=== PATIENT | female | born 2000 | race Caucasian/White ===

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

== ENCOUNTER → 2022-12-18 | Outpatient (CLI) | payer SELFPAY ==
[2022-12-18 15:26] LABS: Absolute Lymphocyte Count 1.56 X10^3/uL (0.83-4.51); Absolute Neutrophil Count 5.5 X10^3/uL (2.0-7.7); Basophil# 0.02 X10^3/uL; Basophil% 0.3 % (0-1); Eosinophil# 0.17 X10^3/uL; Eosinophils% 2.2 % (0-5); Hematocrit 36.6 % (37-47); Hemoglobin 12.5 g/dL (12.0-15.0); Lymphocyte # 1.56 X10^3/ul (0.83-4.51); Lymphocyte % 20.1 % (19-41); Mean Corp Hgb Conc 34.2 g/dL (32-36); Mean Corpuscular Volume 93.6 fL (81-99); Mean Platelet Vol. 9.8 fl (6.2-12.0); Monocyte# 0.54 X10^3/uL; NRBC Flagged by Analyzer 0 % (0-5); Neutrophil # 5.45 X10^3/uL (2.7-7.7); Neutrophil % 70.1 % (47-70); Platelet Count 280 K/mm3 (150-450); RBC Distribution Width CV 13.9 % (11.6-14.6); RBC Distribution Width SD 47.5 fl (35.1-43.9); Red Blood Count 3.91 M/mm3 (4.2-5.4); White Blood Count 7.8 K/mm3 (4.4-11.0)
[2022-12-18 16:39] LABS: HIV - WCH Non-Reactive (Nonreactive); Hepatitis B Surface Antigen Non-Reactive (Nonreactive); Hepatitis C Antibody Non-Reactive (Nonreactive); Rubella IgG Reactive (Nonreactive); Syphilis Antibodies Non-reactive
[2022-12-20 06:09] LABS: V-Zoster IgG (Immunity) 1038 index (Immune >165)
[2022-12-27 21:21] LABS: HPV Reflexed? NOT INDICATED
== END | disposition home or self-care (01) ==
LOC: WOBLAB 14:25
PROVIDERS: PCP Family Medicine; Visit Provider Student in an Organized Health Care Education/Training Program
DX: Z34.81 Encounter for supervision of other normal pregnancy, first trimester (principal)
CPT/HCPCS: 36415; 85025; 86703; 86762; 86780; 86787; 86803; 87086; 87088; 87340; 88175; G0145

== ENCOUNTER → 2023-03-26 | Outpatient (CLI) | payer OTHER, SELFPAY ==
[2023-03-26 11:02] LABS: Absolute Lymphocyte Count 1.52 X10^3/uL (0.83-4.51); Absolute Neutrophil Count 8.5 X10^3/uL (2.0-7.7); Basophil# 0.03 X10^3/uL; Basophil% 0.3 % (0-1); Eosinophil# 0.15 X10^3/uL; Eosinophils% 1.3 % (0-5); Hematocrit 36.4 % (37-47); Hemoglobin 11.9 g/dL (12.0-15.0); Lymphocyte # 1.52 X10^3/ul (0.83-4.51); Lymphocyte % 13.7 % (19-41); Mean Corp Hgb Conc 32.7 g/dL (32-36); Mean Corpuscular Hgb 32.2 pg (27.0-32.0); Mean Corpuscular Volume 98.6 fL (81-99); Mean Platelet Vol. 9.6 fl (6.2-12.0); Monocyte# 0.83 X10^3/uL; Monocyte% 7.5 % (0-10); NRBC Flagged by Analyzer 0 % (0-5); Neutrophil % 76.4 % (47-70); Platelet Count 264 K/mm3 (150-450); RBC Distribution Width CV 14.4 % (11.6-14.6); RBC Distribution Width SD 51.6 fl (35.1-43.9); Red Blood Count 3.69 M/mm3 (4.2-5.4); White Blood Count 11.1 K/mm3 (4.4-11.0)
[2023-03-26 11:09] LABS: Glucose Challenge Gest 1H 50g 91 mg/dL (70-140)
[2023-03-26 11:33] LABS: Syphilis Antibodies Non-reactive
== END | disposition home or self-care (01) ==
LOC: WOBLAB 09:13
PROVIDERS: PCP Family Medicine; Visit Provider Student in an Organized Health Care Education/Training Program
DX: Z34.82 Encounter for supervision of other normal pregnancy, second trimester (principal)
CPT/HCPCS: 36415; 82950; 85025; 86780

== ENCOUNTER 2023-06-18 14:55 | Outpatient (CLI) | payer OTHER, SELFPAY ==
[2023-06-18 15:17] VITALS: BP 120/66; TEMP 36.4; O2SAT 97
[2023-06-18 15:18] VITALS: PULSE 110; O2SAT 95
--- NOTE | 2023-06-18 16:39 | OB.TRI.PN ---
Progress Notes Progress Note: at 37w3d with SHY: 07/06/23 for cramping and possible labor. No vaginal bleeding or leakage of fluid. NST: 125, accels, no decels, no contractions, Reactive NST Cervix closed Assessment & Plan (1) History of section: (2) False labor: PLAN: Plan 1) No signs of labor 2) D/C home
== END 2023-06-18 16:10 | disposition home or self-care (01) ==
LOC: WPOUT 14:59 → WP 15:00
PROVIDERS: PCP Family Medicine; Visit Provider Advanced Practice Midwife
DX: O47.1 False labor at or after 37 completed weeks of gestation (principal); Z3A.37 37 weeks gestation of pregnancy
CPT/HCPCS: 59025; 59050; 99221; G0378

== ENCOUNTER 2023-06-30 22:30 | Inpatient (IN) | payer SELFPAY, OTHER ==
[2023-06-30 22:30] VITALS: BP 136/83; PULSE 105
[2023-06-30 22:31] VITALS: PULSE 103; O2SAT 97
[2023-06-30 22:39] VITALS: BMI 29.5
[2023-06-30] MEDS: LACTATED RINGERS 500 ML 999 ML IV (23:00)
[2023-06-30] MEDS: Penicillin G Pot 5,000,000 UNITS in 0.9% Normal Saline (100mL MB+) 100 ML 150 UNITS IV (23:32)
[2023-06-30] MEDS: Lactated Ringers 1,000 ML 200 ML IV (23:33)
[2023-06-30 23:47] LABS: Absolute Lymphocyte Count 2.13 X10^3/uL (0.83-4.51); Absolute Neutrophil Count 12.9 X10^3/uL (2.0-7.7); Basophil# 0.06 X10^3/uL; Basophil% 0.4 % (0-1); Eosinophils% 1.2 % (0-5); Hematocrit 37.7 % (37-47); Hemoglobin 12.3 g/dL (12.0-15.0); Lymphocyte # 2.13 X10^3/ul (0.83-4.51); Lymphocyte % 12.7 % (19-41); Mean Corp Hgb Conc 32.6 g/dL (32-36); Mean Platelet Vol. 10.6 fl (6.2-12.0); Monocyte# 1.39 X10^3/uL; Monocyte% 8.3 % (0-10); NRBC Flagged by Analyzer 0 % (0-5); Neutrophil # 12.88 X10^3/uL (2.7-7.7); Neutrophil % 76.7 % (47-70); Platelet Count 269 K/mm3 (150-450); RBC Distribution Width CV 13.8 % (11.6-14.6); RBC Distribution Width SD 47.8 fl (35.1-43.9); Red Blood Count 3.97 M/mm3 (4.2-5.4); White Blood Count 16.8 K/mm3 (4.4-11.0)
[2023-07-01] VITALS (64 sets, daily range): BP systolic 107–140; BP diastolic 55–85; PULSE 83–187; RESP 16; TEMP 36.1–37.4; O2SAT 88–100
[2023-07-01] MEDS: fentaNYL-bupivacaine (epidural) 100 ML BAG EPIDURAL ×3 (00:37→09:54)
[2023-07-01 00:41] LABS: Syphilis Antibodies Non-reactive
[2023-07-01] MEDS: LACTATED RINGERS 500 ML 999 ML IV ×2 (01:02→05:37)
--- NOTE | 2023-07-01 02:09 | PCM.HP.OB ---
HPI - General General Date of Admission: 06/30/23 Date of Service: 07/01/23 Chief Complaint: labor HPI Narrative MAKSIM SHANE, is a 22-year-old female 2 para 1 who presents at 39-2/7 weeks gestation complaining contractions and spontaneous rupture membranes. She denies any gross vaginal bleeding. She has a history of 1 previous section for breech and she would like to attempt a trial of labor after . Past medical history significant for history of depression. Maternal Data Information Final SHY: 07/06/23 Gestational age: 39 2/7 [facility] Medical History (Updated 07/01/23 @ 02:[address] Nathalia López MD) Depression Diarrhea Eating disorder Home Medications docosahexaenoic acid 200 mg capsule ( DHA) mg PO 06/30/23 [History Last Taken 06/29/23] sertraline 50 mg tablet 50 mg depression 06/30/23 [History Last Taken 06/29/23] Allergy/AdvReac Type Severity Reaction Status Date / Time No Known Allergies Allergy Verified 06/30/23 22:39 Surgical History (Updated 06/30/23 @ 23:17 by Lucia Serna) History of appendectomy History of surgery Social History (Updated 08/22/19 @ 13:59 by Darrel Vyas CARPET INSTALLATION SPECIALIST, CARPET INSTALLATION SPECIALIST-C) Smoking Status: Never smoker alcohol intake: never History Elective abortions Hx Para 1 Spontaneous abortions Hx # Term Pregnancies Ectopic pregnancies Hx # Pregnancies Multiple births # of living children ROS Constitutional Constitutional: Denies fatigue, fever(s) or malaise Eyes Eyes: Denies change in vision ENT HEENT: Denies dizziness or headache(s) Cardiovascular Cardiovascular: Denies chest pain, dyspnea or lightheadedness Respiratory/Chest Respiratory/Chest: Denies cough or dyspnea Gastrointestinal Gastrointestinal: Denies change in bowel habits Genitourinary Genitourinary: Denies burning urination or genital lesions Integumentary Integumentary: Denies rash Neurologic Neurologic: Denies confusion, dizziness, headache(s), numbness or weakness Vital Signs Vital Signs Vital Signs: 06/30/23 22:30 06/30/23 22:30 06/30/23 22:31 Temperature Temperature Source Pulse Rate 105 H 103 H Blood Pressure 136/83 H BP Systolic 136 BP Diastolic 83 Pulse Ox 06/30/23 22:31 07/01/23 00:00 07/01/23 00:01 Temperature Temperature Source Temporal Pulse Rate 117 H Blood Pressure BP Systolic BP Diastolic Pulse Ox 97 07/01/23 00:01 07/01/23 00:00 07/01/23 00:07 Temperature 98.3 F Temperature Source Pulse Rate 115 H Blood Pressure BP Systolic BP Diastolic Pulse Ox 98 07/01/23 00:07 07/01/23 00:10 07/01/23 00:10 Temperature Temperature Source Pulse Rate 115 H Blood Pressure 117/85 H BP Systolic 117 BP Diastolic 85 Pulse Ox 98 07/01/23 00:12 07/01/23 00:12 07/01/23 00:14 Temperature Temperature Source Pulse Rate 115 H Blood Pressure 127/76 H BP Systolic 127 BP Diastolic 76 Pulse Ox 98 07/01/23 00:14 07/01/23 00:18 07/01/23 00:18 Temperature Temperature Source Pulse Rate 110 H 112 H Blood Pressure BP Systolic BP Diastolic Pulse Ox 98 07/01/23 00:20 07/01/23 00:20 07/01/23 00:22 Temperature Temperature Source Pulse Rate 110 H 116 H Blood Pressure 129/73 H BP Systolic 129 BP Diastolic 73 Pulse Ox 07/01/23 00:22 07/01/23 00:23 07/01/23 00:23 Temperature Temperature Source Pulse Rate 118 H Blood Pressure BP Systolic BP Diastolic Pulse Ox 94 88 07/01/23 00:24 07/01/23 00:24 07/01/23 00:28 Temperature Temperature Source Pulse Rate 118 H 115 H Blood Pressure 137/81 H BP Systolic 137 BP Diastolic 81 Pulse Ox 07/01/23 00:28 07/01/23 00:29 07/01/23 00:29 Temperature Temperature Source Pulse Rate 113 H Blood Pressure 131/77 H BP Systolic 131 BP Diastolic 77 Pulse Ox 98 07/01/23 00:33 07/01/23 00:33 07/01/23 00:35 Temperature Temperature Source Pulse Rate 116 H Blood Pressure 117/67 BP Systolic 117 BP Diastolic 67 Pulse Ox 98 07/01/23 00:35 07/01/23 00:38 07/01/23 00:38 Temperature Temperature Source Pulse Rate 108 H 107 H Blood Pressure BP Systolic BP Diastolic Pulse Ox 98 07/01/23 00:39 07/01/23 00:39 07/01/23 00:39 Temperature Temperature Source Pulse Rate 112 H Blood Pressure 117/63 BP Systolic 117 BP Diastolic 63 Pulse Ox 94 07/01/23 00:43 07/01/23 00:43 07/01/23 00:45 Temperature Temperature Source Pulse Rate 101 H Blood Pressure 122/74 H BP Systolic 122 BP Diastolic 74 Pulse Ox 98 07/01/23 00:45 07/01/23 00:48 07/01/23 00:48 Temperature Temperature Source Pulse Rate 93 99 Blood Pressure BP Systolic BP Diastolic Pulse Ox 99 07/01/23 00:50 07/01/23 00:50 07/01/23 00:53 Temperature Temperature Source Pulse Rate 102 H 97 Blood Pressure 112/71 BP Systolic 112 BP Diastolic 71 Pulse Ox 07/01/23 00:53 07/01/23 00:54 07/01/23 00:54 Temperature Temperature Source Pulse Rate 107 H Blood Pressure 111/71 BP Systolic 111 BP Diastolic 71 Pulse Ox 99 07/01/23 00:58 07/01/23 00:58 07/01/23 00:59 Temperature Temperature Source Pulse Rate 105 H Blood Pressure 111/68 BP Systolic 111 BP Diastolic 68 Pulse Ox 98 07/01/23 00:59 07/01/23 01:03 07/01/23 01:03 Temperature Temperature Source Pulse Rate 96 89 Blood Pressure BP Systolic BP Diastolic Pulse Ox 98 07/01/23 01:04 07/01/23 01:04 07/01/23 01:05 Temperature Temperature Source Temporal Pulse Rate 93 Blood Pressure 110/69 BP Systolic 110 BP Diastolic 69 Pulse Ox 07/01/23 01:05 07/01/23 01:08 07/01/23 01:08 Temperature 97.4 F L Temperature Source Pulse Rate 86 Blood Pressure BP Systolic BP Diastolic Pulse Ox 98 07/01/23 01:13 07/01/23 01:13 07/01/23 01:18 Temperature Temperature Source Pulse Rate 93 92 Blood Pressure BP Systolic BP Diastolic Pulse Ox 98 07/01/23 01:18 07/01/23 01:23 07/01/23 01:23 Temperature Temperature Source Pulse Rate 98 Blood Pressure BP Systolic BP Diastolic Pulse Ox 98 98 07/01/23 01:28 07/01/23 01:28 07/01/23 01:33 Temperature Temperature Source Pulse Rate 99 100 Blood Pressure BP Systolic BP Diastolic Pulse Ox 98 07/01/23 01:33 07/01/23 01:36 07/01/23 01:36 Temperature Temperature Source Pulse Rate 96 Blood Pressure 109/65 BP Systolic 109 BP Diastolic 65 Pulse Ox 99 Weight Weight: 68.5 kg Body Mass Index (BMI) 29.5 Physical Exam Const alert and no apparent distress General Appearance: cooperative HEENT normocephalic Resp normal respiratory effort Cardio regular rate GI soft to palpation GI Narrative: gravid, nontender, appropriate for gestational age Extremity no calf tenderness General Extremity: edema Skin no wounds Rashes: No rashes noted Psych activity/motor behavior normal Labs Labs Labs: Blood Type A POSITIVE Antibody Screen NEGATIVE Hct 37.7 % (37-47) Hgb 12.3 g/dL (12.0-15.0) Syphilis Total Ab Non-reactive VZV IgG Antibody 1038 index (Immune >165) Rubella IgG Antibody Reactive (Nonreactive) Hep Bs Antigen Non-Reactive (Nonreactive) Hepatitis C Antibody Non-Reactive (Nonreactive) HIV 1&2 Antibody Non-Reactive (Nonreactive) Glucose 1 Hr 50 gm 91 mg/dL (70-140) Assessment & Plan (1) History of section: PLAN: Response and alternatives to trial labor him discussed with patient, her questions were answered to her satisfaction she desires to proceed. Estimated weight is less than 4000 g clinically and pelvis clinically adequate to expect vaginal delivery. Will augment with Pitocin if needed. Contractions are adequate at this time. Actually some tachysystole and may need terbutaline to help space them out. GBS prophylaxis initiated. Expectant management for vaginal delivery. (2) 39 weeks gestation of :
[2023-07-01] MEDS: Penicillin G 3,000,000 Units 50 ML 100 UNITS IV ×2 (04:08→08:20)
[2023-07-01] MEDS: Lactated Ringers 1,000 ML 200 ML IV (05:17)
[2023-07-01] MEDS: Ondansetron 4 MG/2 ML Vial IV (06:37)
--- NOTE | 2023-07-01 08:32 | PCM.PN.BLA ---
Progress Note At bedside to check on patient. Comfortable with epidural. She offers no complaints at this time. Assessment & Plan Assessment/Plan (1) 39 weeks gestation of : PLAN: Cvx 9.5/90/0. Comfortable with epidural. FHT reassuring. Anticipate vaginal delivery. (2) History of section: (3) Active labor at term:
[2023-07-01] MEDS: Oxytocin 15 Units/NS 250ml 15 UNITS/250 ML IV.SOLN 2 UNITS IV (11:41)
[2023-07-01] MEDS: Cefazolin 2 GM in 0.9% Normal Saline (100mL Bag) 100 ML IV (12:34)
[2023-07-01] MEDS: Oxytocin 15 Units/NS 250ml 15 UNITS/250 ML IV.SOLN 83 UNITS IV (12:50)
--- NOTE | 2023-07-01 12:57 | PCM.OPRPT ---
Problems Associated Problem List Diagnoses (1) 39 weeks gestation of : (2) Active labor at term: (3) History of section: Report of Operation Date of Procedure: 07/01/23 Pre-Operative Diagnosis: 39 week gestation, labor, history section, TOLAC Post-Operative Diagnosis: As above, Surgery/Procedure Performed:: 3A perineal laceration repair Description of Surgical Findings:: VMI in cephalic presentation with head in ARELIS position. Loose nuchal cord x 1. Normal appearing placenta with 3 VC. 3A perineal laceration. Surgeon: Michelle Walter Type of Anesthesia: Epidural Special Medications: None Specimen's removed: Placenta Drains: Sanchez removed about 1 hour prior to delivery Estimated Blood Loss (mL): 400 Fluids Replaced: N/A Description of Procedure: The patient was prepped for delivery in the dorsal lithotomy position using stirrups when she was complete and +1. The head of the was delivered in left occiput anterior position. The anterior shoulder was delivered with gentle downward traction and the loose nuchal cord x1 was reduced. The posterior shoulder and body of the was delivered. A viable male infant was delivered without any excessive traction, and without any force or delay. The cord was clamped and cut immediately. Cord gases were sent. The placenta was delivered with fundal massage and noted to be normal-appearing and intact with a three-vessel cord. The uterus was explored x1. A 3 a perineal laceration was noted. 2-0 Vicryl was used to reapproximate the anal sphincter in an end-to-end fashion. 3-0 Vicryl was then used to repair the remaining second-degree perineal laceration in usual fashion. Fundus firm and bleeding hemostatic. A vaginal sweep was performed. A rectal exam was performed at the end of the case and noted to be normal. Sharp and sponge counts were correct. Grafts/Implants Used: None Complications None Admit VTE Documentation VTE Present on Admission: No
[2023-07-01] MEDS: Ibuprofen 600 MG Tablet PO ×2 (14:11→21:20)
[2023-07-01] MEDS: Docusate Sodium 100 MG Capsule PO (21:20)
[2023-07-01] MEDS: Sertraline 50 MG Tablet PO (21:20)
[2023-07-01] MEDS: Acetaminophen 500 MG Tablet 1000 MG PO (22:17)
[2023-07-02] VITALS (8 sets, daily range): BP systolic 110–127; BP diastolic 55–67; PULSE 91–102; RESP 15–16; TEMP 36.1–36.8; O2SAT 96
[2023-07-02] MEDS: Acetaminophen 500 MG Tablet 1000 MG PO ×2 (04:38→13:48)
[2023-07-02] MEDS: Ibuprofen 600 MG Tablet PO ×2 (07:48→16:05)
--- NOTE | 2023-07-02 08:54 | PCM.PN.OB ---
Subjective Subjective Doing well per patient and nursing staff. Ambulating and taking PO without difficulty. Voiding and passing flatus. Pain controlled. , services for assistance. Denies headache, visual changes, chest pain, shortness of breath, leg pain or increased bleeding. Lochia normal. Objective Data Objective Data Vital Signs: Vital Signs Temp Pulse Resp BP Pulse Ox O2 Del Method 97.8 F 102 H 16 124/65 H 97 Room Air 07/02/23 07:40 07/02/23 07:42 07/02/23 07:40 07/02/23 07:42 07/01/23 16:34 07/02/23 04:33 Oxygen Delivery Method Room Air Weight: 151 lb 0.266 oz Body Mass Index (BMI) 29.5 Intake & Output: Intake and Output for Last 24 Hours 06/30/23 07/01/23 07/02/23 23:59 23:59 23:59 Intake Total 500 / 500 2669.87 / 2669.87 Output Total 2800 / 2800 Balance 500 / 500 -130.13 / -130.13 Lab / Micro Data 06/30/23 23:09 ROS Constitutional Constitutional: Reports systems reviewed and no addt'l complaints, except as documented; Denies headache(s) Eyes Eyes: Denies acute decrease in peripheral vision, blurry vision or change in vision ENT HEENT: Reports systems reviewed and no addt'l complaints, except as documented Cardiovascular Cardiovascular: Denies chest pain or dizziness Respiratory/Chest Respiratory/Chest: Denies cough, dyspnea, dyspnea on exertion, shortness of breath at rest or shortness of breath with exertion Gastrointestinal Gastrointestinal: Denies abdominal pain, diarrhea, nausea or vomiting Genitourinary Genitourinary: Denies abdominal discomfort Musculoskeletal Musculoskeletal: Denies limited range of motion Integumentary Integumentary: Reports systems reviewed and no addt'l complaints, except as documented Neurologic Neurologic: Reports systems reviewed and no addt'l complaints, except as documented Psychiatric Psychiatric: Reports systems reviewed and no addt'l complaints, except as documented Endocrine Endocrinology: Reports systems reviewed and no addt'l complaints, except as documented Hematologic/Lymphatic Hematologic/Lymphatic: Reports systems reviewed and no addt'l complaints, except as documented Allergic/Immunologic Allergic/Immunologic: Reports systems reviewed and no addt'l complaints, except as documented Physical Exam Const alert and oriented x3 General Appearance: cooperative Orientation / Consciousness: awake, oriented to person, oriented to place and oriented to time Exam Limitations: no limitations HEENT normocephalic Head and Scalp: normal to inspection, normocephalic and atraumatic Face and Sinus: normal facial exam Eyes General Eye: normal appearance of both eyes Neck full ROM Chest Chest: symmetrical chest wall rise Resp normal respiratory effort and normal air movement Auscultation: clear to auscultation bilaterally Cardio regular rate, regular rhythm, S1 normal heart sound, S2 normal heart sound, no murmurs, no rub, no gallops and no clicks GI normal to inspection, nondistended, normoactive bowel sounds and non-tender appearance of the vagina normal Bladder / Kidney Exam: no CVA tenderness Back/Spine normal ROM Extremity normal to inspection and full ROM Skin no rashes or lesions noted Neuro oriented x3 and moves all extremities Sensorium / Orientation: awake, alert and oriented to person Assessment & Plan (1) , delivered: (2) Third degree perineal laceration: (3) Lactating mother: PLAN: Plan 1) PPD#1 2) 3) 3rd degree perineal laceration. Stool softener, sitz bath, and follow up with [facility] 4) Pain management 5) D/C home 6) Follow up in 6 weeks
--- NOTE | 2023-07-02 08:57 | PCM.DC.SUM ---
Providers Date of Admission: 06/30/23 Date of Discharge: 07/02/23 Primary Care Physician: Dr. David Navas DO Reason For Visit: VAGINAL DELIVERY Diagnosis Discharge Diagnosis (1) , delivered: Status: Acute Code(s): O34.219 - Maternal care for unspecified type scar from previous delivery (2) Third degree perineal laceration: Status: Acute Code(s): O70.20 - Third degree perineal laceration during delivery, unspecified (3) Lactating mother: Status: Acute Code(s): Z39.1 - Encounter for care and examination of lactating mother Plan 1) PPD#1 2) 3) 3rd degree perineal laceration. Stool softener, sitz bath, and follow up with [facility] 4) Pain management 5) D/C home 6) Follow up in 6 weeks Medications at Discharge Home Medications docosahexaenoic acid 200 mg capsule ( DHA) mg PO 06/30/23 sertraline 50 mg tablet 50 mg depression 06/30/23 acetaminophen 500 mg tablet 1,000 mg (2 x 500 mg) PO Q6H PRN PRN Pain 1-10 Or Fever #0 tabs 07/02/23 benzocaine 20 %-menthol 0.5 % topical aerosol (Dermoplast (with menthol)) 1 spray topical TID PRN PRN perineal discomfort #0 grams 07/02/23 docusate sodium 100 mg capsule 100 mg PO BID #0 caps 07/02/23 ibuprofen 600 mg tablet 600 mg PO Q6H PRN PRN Pain Score 1-3 #0 tabs 07/02/23 sennosides 8.6 mg-docusate sodium 50 mg tablet (Stool Softener-Stimulant Laxative) 1 - 2 tab PO DAILY PRN PRN Constipation #0 tabs 07/02/23 Hospital Course Summary of Care Provided Minutes Spent on Discharge: 15 Weight / BMI Weight Weight: 151 lb 0.266 oz Body Mass Index (BMI) 29.5 ABG / Lab / Microbiology Data 06/30/23 23:09 D/C Instructions Discharge Diet: No restrictions Discharge Activity: Return to Normal Activity May resume sexual activity in: 6 weeks Weight Bearing Status: Weight bearing as tolerated Call your doctor if you observe: Fever of 101 or Higher, Inability to urinate, Inability to have a bowel movement, Using more than 1 pad per hour, Shortness of breath, Chest pain, Calf discomfort and Uncontrolled pain Meaningful Use Info Meaningful Use Diagnoses (Choose all that apply): None applicable Discharge Plan Admission Admit Date/Time: 06/30/23 22:30 Primary Reason for Your Visit: , 3rd degree perineal laceration Attending Provider: Michelle Walter Primary Care Provider: David Navas Discharge Orders/Prescriptions Prescriptions: New Dermoplast (with menthol) 20-0.5 % Aerosol 1 spray topical TID PRN PRN (Reason: perineal discomfort) Qty: 0 0RF Protocol: *Topical Application Instructions APPLICATION INSTRUCTIONS: 1 spray 3 times a day as needed for perineal discomfort sennosides-docusate sodium [Stool Softener-Stimulant Laxat] 8.6-50 mg Tablet 1 - 2 tab PO DAILY PRN PRN (Reason: Constipation ) Qty: 0 0RF acetaminophen 500 mg Tablet 1,000 mg PO Q6H PRN PRN (Reason: Pain 1-10 Or Fever) Qty: 0 0RF docusate sodium 100 mg Capsule 100 mg PO BID Qty: 0 0RF ibuprofen 600 mg Tablet 600 mg PO Q6H PRN PRN (Reason: Pain Score 1-3) Qty: 0 0RF Continued sertraline 50 mg tablet 50 mg Patient Comments: TAKE ONE TABLET BY MOUTH EVERY DAY DHA 200 mg capsule PO Referrals / Follow Up: David Navas DO [Primary Care Provider] - Disposition Disposition (needs filled in before D/C Order can be placed): Home, Self Care
[2023-07-02] MEDS: Docusate Sodium 100 MG Capsule PO (10:05)
--- NOTE | 2023-08-02 13:32 | NURSING ---
08/02 Corrected , vaginal delivery
== END 2023-07-02 17:40 | disposition home or self-care (01) | DRG 768 ==
LOC: WPOUT 22:39 → WP 22:39
PROVIDERS: Obstetrics & Gynecology; Admitting Provider Obstetrics & Gynecology; PCP Family Medicine; Visit Provider Obstetrics & Gynecology
DX: O34.219 Maternal care for unspecified type scar from previous cesarean delivery (principal); Z37.0 Single live birth; O70.21 Third degree perineal laceration during delivery, IIIa; F32.A Depression, unspecified; O99.344 Other mental disorders complicating childbirth; O42.92 Full-term premature rupture of membranes, unspecified as to length of time between rupture and onset of labor; O69.81X0 Labor and delivery complicated by cord around neck, without compression, not applicable or unspecified; Z3A.39 39 weeks gestation of pregnancy; Z79.899 Other long term (current) drug therapy; Z87.59 Personal history of other complications of pregnancy, childbirth and the puerperium
CPT/HCPCS: 59025; 59050; 85025; 86780; 86850; 86900; 86901; 99221; J7120; G0378; J2405

== ENCOUNTER 2024-05-18 05:00 | Inpatient (IN) | payer SELFPAY, OTHER ==
[2024-05-18] VITALS (42 sets, daily range): BP systolic 81–136; BP diastolic 43–82; PULSE 80–137; RESP 14–18; TEMP 36.4–36.9; O2SAT 85–100; BMI 29.1
[2024-05-18] MEDS: Lactated Ringers 1,000 ML 999 ML IV ×2 (05:20→07:30)
--- NOTE | 2024-05-18 05:24 | HP.PCM.OB_ITS ---
HPI - General General Date of Admission: 05/18/24 Date of Service: 05/18/24 Chief Complaint: labor HPI Narrative MAKSIM SHANE, is a 23 F who presents 5 cm dilated with contractions and bloody show. No other complaints. [facility] Medical History (Updated 05/18/24 @ 06:[address] Michelle Walter, DO) Depression Diarrhea Eating disorder Home Medications ?Medication ?Instructions ?Recorded ?Last Taken ?Type docosahexaenoic acid 200 mg mg PO 06/30/23 06/29/23 History capsule ( DHA) sertraline 50 mg tablet 50 mg depression 06/30/23 06/29/23 History acetaminophen 500 mg tablet 1,000 mg (2 x 500 mg) PO Q6H PRN 07/02/23 Unknown Rx PRN Pain 1-10 Or Fever #0 tabs benzocaine 20 %-menthol 0.5 % 1 spray topical TID PRN PRN 07/02/23 Unknown Rx topical aerosol (Dermoplast (with perineal discomfort #0 grams menthol)) docusate sodium 100 mg capsule 100 mg PO BID #0 caps 07/02/23 Unknown Rx ibuprofen 600 mg tablet 600 mg PO Q6H PRN PRN Pain Score 07/02/23 Unknown Rx 1-3 #0 tabs sennosides 8.6 mg-docusate sodium 1 - 2 tab PO DAILY PRN PRN 07/02/23 Unknown Rx 50 mg tablet (Stool Constipation #0 tabs Softener-Stimulant Laxative) Allergy/AdvReac Type Severity Reaction Status Date / Time No Known Allergies Allergy Verified 05/18/24 04:40 Surgical History History of surgery History of appendectomy Social History (Updated 08/22/19 @ 13:59 by Darrel Vyas NP, NANOTECHNOLOGY ENGINEERING TECHNOLOGIST-C) Smoking Status: Never smoker alcohol intake: never History Elective abortions Hx Para 1 Spontaneous abortions Hx # Term Pregnancies Ectopic pregnancies Hx # Pregnancies Multiple births # of living children NST FHR Rate Baby A Baseline: 140 Variability:: Moderate Accelerations:: 15 x 15 Decelerations:: None NST Reactive:: Yes FHR Category:: Category I Uterine Activity:: ctx's q 1-2 min Vital Signs Vital Signs Vital Signs: 05/18/24 04:38 05/18/24 04:38 05/18/24 04:40 Pulse Rate 112 H 110 H Blood Pressure 131/82 H BP Systolic 131 BP Diastolic 82 Pulse Ox 05/18/24 04:40 Pulse Rate Blood Pressure BP Systolic BP Diastolic Pulse Ox 98 Weight Weight: 149 lb 3.2 oz Body Mass Index (BMI) 29.1 Labs Labs Labs: Blood Type A POSITIVE Antibody Screen NEGATIVE Hct 38.4 % (37-47) Hgb 12.9 g/dL (12.0-15.0) Syphilis Total Ab Non-reactive VZV IgG Antibody 1038 index (Immune >165) Rubella IgG Antibody Reactive (Nonreactive) Hep Bs Antigen Non-Reactive (Nonreactive) Hepatitis C Antibody Non-Reactive (Nonreactive) HIV 1&2 Antibody Non-Reactive (Nonreactive) Glucose 1 Hr 50 gm 91 mg/dL (70-140) GBS positive Assessment & Plan (1) 39 weeks gestation of : (2) History of section: (3) History of third degree perineal laceration: (4) Active labor at term: (5) Encounter for trial of labor: PLAN: Admit for routine intrapartum care. PCN for GBS positive. EFW < 4500 grams and pelvis adequate. Prior successful TOLAC. Discussed r/b/a TOLAC vs repeat section and patient desires vaginal delivery. Epidural for pain control.
[2024-05-18] MEDS: Penicillin G Pot 5,000,000 UNITS in 0.9% Normal Saline (100mL MB+) 100 ML 150 UNITS IV (05:27)
[2024-05-18 05:38] LABS: Absolute Lymphocyte Count 1.56 X10^3/uL (0.83-4.51); Absolute Neutrophil Count 12.7 X10^3/uL (2.0-7.7); Basophil# 0.04 X10^3/uL; Basophil% 0.3 % (0-1); Eosinophil# 0.03 X10^3/uL; Eosinophils% 0.2 % (0-5); Hematocrit 38.4 % (37-47); Hemoglobin 12.9 g/dL (12.0-15.0); Lymphocyte # 1.56 X10^3/ul (0.83-4.51); Lymphocyte % 10.1 % (19-41); Mean Corp Hgb Conc 33.6 g/dL (32-36); Mean Corpuscular Hgb 32.8 pg (27.0-32.0); Mean Corpuscular Volume 97.7 fL (81-99); Mean Platelet Vol. 9.8 fl (6.2-12.0); Monocyte# 0.98 X10^3/uL; Monocyte% 6.3 % (0-10); NRBC Flagged by Analyzer 0 % (0-5); Neutrophil # 12.69 X10^3/uL (2.7-7.7); Platelet Count 192 K/mm3 (150-450); RBC Distribution Width CV 13.8 % (11.6-14.6); RBC Distribution Width SD 50.2 fl (35.1-43.9); Red Blood Count 3.93 M/mm3 (4.2-5.4); White Blood Count 15.5 K/mm3 (4.4-11.0)
[2024-05-18] MEDS: fentaNYL-bupivacaine (epidural) 100 ML BAG EPIDURAL (06:25)
[2024-05-18] MEDS: Ondansetron 4 MG/2 ML Vial IV (06:42)
[2024-05-18] MEDS: Oxytocin 10 UNITS/ML Vial IM (08:14)
[2024-05-18] MEDS: Oxytocin 15 Units/NS 250ml 15 UNITS/250 ML IV.SOLN 83 UNITS IV (08:15)
[2024-05-18] MEDS: Methylergonovine 0.2 MG/ML Ampul IM (08:28)
--- NOTE | 2024-05-18 08:29 | OP.PCM_ITS ---
Problems Associated Problem List Diagnoses (1) , delivered: (2) Obstetric vaginal laceration with first degree perineal laceration: Report of Operation Date of Procedure: 05/18/24 Pre-Operative Diagnosis: 39 week gestation, active labor at term, prior section, prior Post-Operative Diagnosis: As above Surgery/Procedure Performed:: Repair of first degree vaginal laceration Description of Surgical Findings:: VFI delivered in ARELIS position. Normal appearing placenta with 3 VC Surgeon: Michelle Walter vascular physician: None Type of Anesthesia: Epidural Special Medications: None Specimen's removed: Placenta Drains: None Estimated Blood Loss (mL): 200 Fluids Replaced: N/A Description of Procedure: Patient prepped and draped in dorsal lithotomy position once complete and pushing. Head of infant delivered in ARELIS position. Anterior shoulder delivered with gentle downward traction, followed by the posterior shoulder and body witho ut any excessive traction, force or delay. The vigorous VFI was placed on maternal abdomen. Apgars 8, 9. The cord was clamped and cut after a 60 second delay by FOB. The placenta delivered with gentle fundal massage and was noted to be normal appearing and intact with 3 VC. 3-0 Vicryl was used to repair a first degree vaginal laceration in usual fashion. A slow trickle of blood was continuously noted from the uterus. The uterus was explored and no retained POC's were noted, the uterus was cleared of a small amount of clots, and the prior uterine incision was intact. Cervix, vagina, and perineum were re examined and no additional lacerations noted and the trickle was uterine. IM Methergine given. Sponge counts correct and a vaginal sweep performed. The technical services consultant provider for today was updated. Grafts/Implants Used: None Complications None Admit VTE Documentation VTE Present on Admission: No
[2024-05-18 10:21] LABS: Syphilis Antibodies Non-reactive
[2024-05-18] MEDS: Ibuprofen 600 MG Tablet PO ×2 (11:19→17:36)
[2024-05-18] MEDS: 0.9% Saline Lock 10 ML Syringe IV (11:20)
[2024-05-18] MEDS: Acetaminophen 500 MG Tablet 1000 MG PO ×2 (14:23→21:56)
[2024-05-19] VITALS (7 sets, daily range): BP systolic 101–119; BP diastolic 55–67; PULSE 81–104; RESP 14–17; TEMP 36.4–36.8; O2SAT 97–98
[2024-05-19] MEDS: Ibuprofen 600 MG Tablet PO ×3 (02:00→14:20)
--- NOTE | 2024-05-19 08:50 | PCM.DC.SUM ---
Providers Date of Admission: 05/18/24 Primary Care Physician: Dr. David Navas DO Reason For Visit: VAG DELIVERY Diagnosis Discharge Diagnosis (1) , delivered: Status: Acute Code(s): O34.219 - Maternal care for unspecified type scar from previous delivery (2) Obstetric vaginal laceration with first degree perineal laceration: Status: Acute Code(s): O70.0 - First degree perineal laceration during delivery Medications at Discharge Home Medications docosahexaenoic acid 200 mg capsule ( DHA) mg PO 06/30/23 sertraline 50 mg tablet 50 mg depression 06/30/23 acetaminophen 500 mg tablet 1,000 mg (2 x 500 mg) PO Q6H PRN PRN Pain 1-10 Or Fever #0 tabs 07/02/23 ibuprofen 600 mg tablet 600 mg PO Q6H PRN PRN Pain Score 1-3 #0 tabs 07/02/23 sennosides 8.6 mg-docusate sodium 50 mg tablet (Stool Softener-Stimulant Laxative) 1 - 2 tab PO DAILY PRN PRN Constipation #0 tabs 07/02/23 Hospital Course Operations None Procedures None Summary of Care Provided Minutes Spent on Discharge: 17 Physical Exam Const alert and no apparent distress Narrative: Fundus firm, below umbilicus. Weight / BMI Weight Weight: 67.676 kg Body Mass Index (BMI) 29.1 ABG / Lab / Microbiology Data 05/18/24 05:20 Laboratory: Laboratory Results - last 24 hr 05/18/24 05:20: Syphilis Total Ab Non-reactive Meaningful Use Info Meaningful Use Meaningful Use Diagnoses (Choose all that apply): None applicable Ischemic Stroke Statin Dosing Therapy Reference: STATIN DOSE THERAPY REFERENCE: * Patients > 75 years receive moderate or high dose statin therapy. * Patients 75 years or YOUNGER should receive HIGH intensity statin dose unless contraindicated. You will be required to document reason for non-treatment if statin daily dose does not meet guidelines. HIGH DOSE STATIN THERAPY DAILY Atorvastatin > than or = to 40 mg Rosuvastatin > than or = to 20 mg Amlodipine + Atorvastatin > than or = to 2.5/40 mg Ezetimibe + Simvastatin 10/80 mg Simvastatin 80mg Discharge Plan Admission Admit Date/Time: 05/18/24 05:00 Primary Reason for Your Visit: Vaginal delivery Attending Provider: Michelle Walter Primary Care Provider: David Navas Discharge Orders/Prescriptions Prescriptions: Continued DHA 200 mg capsule PO acetaminophen 500 mg Tablet 1,000 mg PO Q6H PRN PRN (Reason: Pain 1-10 Or Fever) Qty: 0 0RF ibuprofen 600 mg Tablet 600 mg PO Q6H PRN PRN (Reason: Pain Score 1-3) Qty: 0 0RF Discontinued Dermoplast (with menthol) 20-0.5 % Aerosol 1 spray topical TID PRN PRN (Reason: perineal discomfort) Qty: 0 0RF Protocol: *Topical Application Instructions APPLICATION INSTRUCTIONS: 1 spray 3 times a day as needed for perineal discomfort docusate sodium 100 mg Capsule 100 mg PO BID Qty: 0 0RF No Action sertraline 50 mg tablet 50 mg Patient Comments: TAKE ONE TABLET BY MOUTH EVERY DAY sennosides-docusate sodium [Stool Softener-Stimulant Laxat] 8.6-50 mg Tablet 1 - 2 tab PO DAILY PRN PRN (Reason: Constipation ) Qty: 0 0RF Referrals / Follow Up: David Navas DO [Primary Care Provider] - Disposition Disposition (needs filled in before D/C Order can be placed): Home, Self Care
--- NOTE | 2024-05-19 13:41 | CASEMGMT ---
Social Work Assessment Labor and Delivery Unit Patient Address: [address] [place] [address] Phone number: [phone] Date of Referral: 05/18/24 Time of Referral:? 1150 Referred By: Michelle Walter Date of Intervention: ??05/19/24 Time of Intervention:? 1300 Reason for Referral:? mental health Sw completed chart review and acknowledges social work consult due to maternal mental health history. Sw presented to room and introduced self to mother of baby (KELI- Candace). Sw explained reason for sw involvement and completed psychosocial assessment. Sw asked MOB to complete [place] Depression Scale. History obtained from: medical records and mother of baby (KELI)??? Household composition: Currently residing in the family home is MOB, father of baby (LIVIA- Michael) and their two older children (Chloe- 2 and Joaquim- 10 months). MOB states that housing is safe and secure, no concerns. Patient's parent/guardian status:? MOB states that she and FOB met when they were 16 years old and they have been together for 7 years. MOB denies any domestic violence or intimate partner violence. baby is third baby for parents together. ? Medical History: KELI is 23 year old female who is 3, para 2- now 3 following labor and delivery of . ?MOB received routine care during with [facility]. KELI presented to hospital for delivered baby on 05/18/24 by successful . Baby girl, named Jeannette, was born weighing 7lb 2oz with apgars of 8 and 9 at one and five minutes of life, respectfully. MOB states that she is breast feeding and it is going well. Baby will be followed by Dr. Hood for pediatrics. Educational Status:? Both parents completed the 8th grade as is common in [facility] culture. Financial Status: FOB works outside of the home making chairs. MOB is a stay at home mom. Supplies: MOB reports that they have all the necessary baby supplies, including: car seat, safe sleep space, clothes, diapers and wipes. When discussing safe sleep spaces, KELI reports that she has a separate sleep space for and her 10 month old son. Childcare/Caregiver(s): KELI reports that she will be the primary caregiver to baby along with FOB when he is not working, and will have help from her sister when necessary. Transportation:??Parents use horse and buggy for primary means of transportation. Agencies Involved: ?Parents are not connected to any community agencies that assist them financially. ?? Children Services/Legal Issues:??No former history with Children Services, no issues or concerns warranting referral to be made at this time. ? Behavioral Health Issues: ??Mental Health History:??MOB states that LIVIA does not have any mental health diagnoses. MOB states that she has been diagnosed with depression and was prescribed sertraline. MOB states that she stopped taking her medication early on in . MOB states that her prescriber is Dr. Navas and she is receptive to starting it again now that baby has been born. MOB states that she struggled with depression due to the loss of her mother who of cancer 11 days before her son was born. KELI completed [place] Depression Scale and her score was a 3. Education and Support provided. ? Substance Use History: MOB denies substance use prior to and during . ?? Family History:?MOB denies family history of addiction or significant mental health diagnoses. ? Drug Screens: No drug screens observed during chart review. Family/Social Stressors:? MOB denies any issues, concerns or stressors at this time. Support Systems: KELI identifies that LIVIA and her sister are her biggest supports. Depression/Shaken Baby/Safe Sleeping: Sw educated KELI on signs and symptoms of baby blues and mood and anxiety disorders. KELI states that she is familiar with those terms, but does not feel as though she struggled with any of them after her last deliveries. MOB states that if she struggled at all it was not long lived and she did okay. Sw educated MOB on shaken baby prevention and ABCs of safe sleep. MOB expressed understanding. ASSESSMENT:? MOB and baby are admitted following labor and delivery of . MOB was open and receptive to sw involvement and support. KELI has history of mental health concerns, depression and history of an eating disorder- to which she reports has resolved itself. MOB states that she has natural supports in her and her sister who she is really close to. MOB states that she is connected to a doctor who prescribes her sertraline to help her manage her depression. MOB not receptive to help from , but reports that nursing baby is going well. FOMolly not present for time of assessment, he was at work today. PLAN:?? No other services requested or indicated. MOB and baby to be discharged when medically ready. Parents were provided literature regarding: signs and symptoms of baby blues and mood and anxiety disorders, Help Me Grow, shaken baby prevention, ABCs of safe sleep and a list of county resources that are available for them should any needs present themselves. Daiana Morales, BIOTECHNOLOGIST, AGGREGATE CONVEYOR OPERATOR
[2024-05-19] MEDS: Acetaminophen 500 MG Tablet 1000 MG PO (16:56)
== END 2024-05-19 18:00 | disposition home or self-care (01) | DRG 807 ==
LOC: WPOUT 05:00 → WP 05:00
PROVIDERS: Admitting Provider Obstetrics & Gynecology; PCP Family Medicine; Referring Provider Obstetrics & Gynecology; Visit Provider Obstetrics & Gynecology
DX: O98.82 Other maternal infectious and parasitic diseases complicating childbirth (principal); Z37.0 Single live birth; O99.344 Other mental disorders complicating childbirth; B95.1 Streptococcus, group B, as the cause of diseases classified elsewhere; F32.A Depression, unspecified; O34.219 Maternal care for unspecified type scar from previous cesarean delivery; O70.0 First degree perineal laceration during delivery; Z3A.39 39 weeks gestation of pregnancy; Z90.49 Acquired absence of other specified parts of digestive tract; Z79.899 Other long term (current) drug therapy; Z87.59 Personal history of other complications of pregnancy, childbirth and the puerperium
CPT/HCPCS: 59025; 59050; 85025; 86780; 86850; 86900; 86901; 99221; J7120; A4216; G0378; J2405